=== PATIENT | male | born 1980 | race Caucasian/White ===

== ENCOUNTER → 2021-07-29 | Day surgery (SDC) | payer OTHER ==
[~2021-07-29] VITALS: Ht 198.1 cm; Wt 146.1 kg
[~2021-07-29] MED LIST: ALLEGRA ALLERG180 MG PO; ALLOPURINOL300 MG PO; AMITRIPTYLINE100 MG PO; ASPART SC; CARAFATE1 GM PO; COZAAR100 MG PO; FARXIGA10 MG PO; FEROSUL325 MG PO; FOLIC ACID1 MG PO; GABAPENTIN800 MG PO; GEMFIBROZIL600 MG PO; INDOCIN25 MG PO; LEVEMIR VI100 UNITS/ SC; LOSARTAN-HCTZ1 EAC1 PO; LOVAZA1 GM PO; METFORMIN HCL1000 MG PO; METOPROLOL SUCC25 MG PO; METOPROLOL TART25 MG PO; NATEGLINIDE60 MG PO; PROBIOTIC DIGE1 EACH PO; PROTONIX 40MG T40 MG PO; TIZANIDINE HCL4 M1 PO; VITAMIN D250000 UNIT PO; VITAMIN D3125 MCG PO
[2021-07-29 06:35] LABS: HCT 43.8 % (42.0-52.0); HGB 14.1 g/dl (13.2-18.0); MCH 26.6 pg (25.0-31.0); MCHC 32.2 g/dL (32.0-36.0); MCV 82.5 fL (78.0-100.0); MPV 9.8 fL (6.0-9.5); RBC 5.31 M/uL (4.70-6.00); RDW 14.3 % (11.5-14.0); WBC 12.8 K/uL (4.0-10.5)
[2021-07-29 06:56] LABS: ALBUMIN 3.7 g/dL (3.4-5.0); BILIRUBIN - TOTAL 0.2 mg/dL (0.2-1.0); BUN/CREAT RATIO (CALC) 19.4 RATIO; CREATININE 0.98 mg/dL (0.67-1.17); GLOBULIN (CALCULATION) 3.4 g/dL; POTASSIUM 3.7 mmol/L (3.5-5.1); TOTAL PROTEIN 7.1 g/dL (6.4-8.2)
== END | disposition home or self-care (01) ==
LOC: FAS 07-24 12:05
PROVIDERS: Orthopaedic Surgery
DX: G56.01 Carpal tunnel syndrome, right upper limb (principal)
CPT/HCPCS: 36415; 80053; 82962; J1100; J1170; J1885; J2250; J2405; J2704; J3010; J3490; J7120